=== PATIENT | male | born 1985 | race Caucasian/White ===

== ENCOUNTER → 2020-07-29 09:31 | Outpatient (REF) | payer OTHER, SELFPAY ==
--- NOTE | 2020-07-29 09:33 | CA_ITS ---
Transthoracic Echocardiogram Patient (Last, First, Middle): Leobardo Coronado, Gender: Male Date of : 1985 Age: 35 Procedure Date: 07/29/2020 Procedure Type: Transthoracic Echocardiogram Location: OP Height: 190.5 cm Weight: 95.26 kg BSA: 2.24 m2 Heart Rate: bpm BP: 124 / 76 mmHg Geriatric Social Worker: KATIE Referring MD: Thomas Isabel MD Symptoms: I10 [id number].I45.10 LBBB Study Quality: Good ECG Rhythm: Sinus Conclusions: - The left ventricular systolic function is normal. The visually estimated ejection fraction is between 60-65%. - No obvious valvular pathology seen on this study. Findings Left Ventricle Normal left ventricular cavity size. There is normal left ventricular wall thickness. The left ventricular systolic function is normal. The visually estimated ejection fraction is between 60-65%. There is no evidence of regional wall motion abnormalities. Diastolic function is normal for age. Right Ventricle Normal right ventricular cavity size and systolic function. Atria The left atrium is normal in size. The right atrium is normal in size. There is a prominent Chiari network. (normal variant). Aortic Valve There is a normal trileaflet aortic valve. There is no aortic valve stenosis. There is no aortic valve regurgitation. Mitral Valve The mitral valve appears normal. There is trace mitral valve regurgitation. There is no mitral valve stenosis. Pulmonic Valve The pulmonic valve was not well visualized. There is trace pulmonic valve regurgitation. Tricuspid Valve Normal tricuspid valve structure. There is trace tricuspid valve regurgitation. The pulmonary artery systolic pressure is normal. Great Vessels The asc aorta is normal in size. Venous The inferior vena cava is normal in size and collapses greater than 50% with inspiration. Pericardium/Pleural There is no evidence of pericardial effusion. Prior Study Comparison No significant change compared to prior study dated: 03/11/2009. Recommendations, Care & Conclusions No obvious valvular pathology seen on this study. Measurements 2D Linear Measurements RVIDd: 3.04 RVIDd Index: 1.36 IVSd: 0.88 0.6-0.9/0.6-1.0 cm LVIDd: 4.90 3.9-5.3/4.2-5.9 cm LVIDd Index: 2.19 2.4-3.2/2.2-3.1 cm/m2 LVIDs: 3.21 2.0-3.6 cm LVPWd: 0.99 0.7-1.1 cm Ao Root: 3.00 2.1-3.5 cm LA Diam: 3.20 2.7-3.8/3.0-4.0 cm LAIDs Index: 1.43 1.5-2.3 cm/m2 LV Mass: 201.06 67-162/88-224 g LV Mass Index: 89.76 43-95/49-115 g/m2 LVOT Diam: 2.40 3.0+(-)1.3 cm 2D Systolic Function EF 4C: 70.80 >55% EF 2C: 66.40 >55% EF BiP: 69.00 >55% Mitral Valve MV Pk E: 0.61 MV PK A: 0.67 MV Decel Time: 137.00 E/A: 0.90 E'Lateral: 12.60 E'Medial: 8.61 E/E' Med: 7.00 E/E' Lat: 4.80 Aortic Valve AoV Pk Neal: 1.29 AoV Mn Neal: 1.01 AoV VTI: 0.25 AoV Pk Grad: 7.00 Aov Mn Grad: 4.00 SULEIMAN Cont.VTI: 3.36 LVOT LVOT Pk Neal: 1.07 LVOT Mn Neal: 0.70 LVOT VTI: 0.18 LVOT Pk Grad: 5.00 LVOT Mn Grad: 2.00 LVOT Diam: 2.40 LVOT Area: 4.52 Diastolic Function MV Pk E: 0.61 MV Pk A: 0.67 E/A: 0.90 E'Medial: 8.61 E/E' Med: 7.00 E' Laterial: 12.60 E/E' Lat: 4.80 Tricuspid Valve RA Press: 3.00 Great Vessels Aorta Ao Root-2D: 3.00 2.0-3.7 cm Ao Asc: 2.60 2.1-3.4 cm Ao Arch: 2.70 Updated in Other Vendor System with Status of Final Dino Resendiz MD electronically signed on 07/30/2020 9:42:20 AM with status of Final
== END ==
LOC: HO.CARD 09:31
PROVIDERS: PCP Internal Medicine; Visit Provider Internal Medicine
DX: I10 Essential (primary) hypertension (principal); I45.10 Unspecified right bundle-branch block
CPT/HCPCS: 93306

== ENCOUNTER 2021-02-16 16:31 | Outpatient (REF) | payer OTHER, SELFPAY ==
[2021-02-16 18:04] LABS: Glucose Urine UA NEG (NEG); Leukocyte Esterase Urine NEG (NEG); Nitrite Urine NEG (NEG); Urine Blood NEG (NEG); Urine Ketones NEG (NEG); Urine Protein NEG (NEG-TRACE)
[2021-02-16 18:07] LABS: Appearance Urine CLEAR; Color Urine YELLOW
[2021-02-16 18:09] LABS: Anion Gap 13 (12-20); Blood Urea Nitrogen 13 mg/dL (9-16); Calcium 9.3 mg/dL (8.4-10.2); Carbon Dioxide 28 mmol/L (22-29); Chloride 100 mmol/L (96-108); Cholesterol 284 mg/dL; Estimated Glomerular Filt Rate > 60; Glucose Random 72 mg/dL (60-115); Potassium 4.1 mmol/L (3.3-5.1); Sodium 137 mmol/L (135-145)
== END 2021-02-16 16:32 | disposition home or self-care (01) ==
LOC: HO.LAB 16:31
PROVIDERS: PCP Internal Medicine; Visit Provider Internal Medicine
DX: I10 Essential (primary) hypertension (principal); R30.0 Dysuria
CPT/HCPCS: 36415; 80048; 81003; 82465

== ENCOUNTER 2021-12-11 16:24 | Outpatient (REF) | payer OTHER, SELFPAY ==
[2021-12-11 16:36] LABS: MANUAL DIFF FLAG NO
[2021-12-11 16:55] LABS: Eosinophils Absolute Auto 0.1 X10*3/uL (0.0-0.4); Hematocrit 42.6 % (42.0-52.0); Hemoglobin 14.9 g/dl (14.0-18.0); Imm Gran Abs Auto 0.01 X10*3/uL (0.00-0.03); Imm Gran Pct Auto 0.2 % (0.0-0.4); Lymphocytes Absolute Auto 1.6 X10*3/uL (1.2-4.9); Lymphocytes Percent Auto 33.5 % (20-40); Mean Corpuscular Hemoglobin 31.5 pg (27.0-33.0); Mean Corpuscular Volume 90.1 fL (80.0-98.0); Mean Platelet Volume 8.9 fL (9.4-12.4); Monocytes Absolute Auto 0.5 X10*3/uL (0.1-1.2); Monocytes Percent Auto 9.6 % (2-11); Neutrophils Absolute Auto 2.7 x10*3/uL (2.0-8.3); Neutrophils Percent Auto 55.7 % (45-73); Platelet Count 258 X10*3/uL (160-400); Red Blood Count 4.73 X10*6/uL (4.60-5.80); Red Cell Distribution Width 11.4 % (11.0-16.0); White Blood Count 4.9 X10*3/uL (4.8-10.8)
[2021-12-11 17:10] LABS: Alanine Aminotransferase 62 U/L (0-40); Albumin Level 4.6 g/dL (3.5-5.0); Alkaline Phosphatase 88 U/L (39-117); Anion Gap 12 (12-20); Aspartate Amino Transferase 35 U/L (5-37); Bilirubin Total 0.4 mg/dL (0.0-1.0); Blood Urea Nitrogen 12 mg/dL (9-16); C Reactive Protein 0.54 mg/dL (< or = 0.50); Carbon Dioxide 31 mmol/L (22-29); Chloride 101 mmol/L (96-108); Cholesterol 281 mg/dL; Estimated Glomerular Filt Rate > 60; Glucose Random 84 mg/dL (60-115); HDL Cholesterol 51 mg/dL; LDL Cholesterol Calculated 178 mg/dl; Lipase 35 U/L (8-78); Potassium 4.1 mmol/L (3.3-5.1); Sodium 140 mmol/L (135-145); Total Protein 7.2 g/dL (6.5-8.0); Triglycerides 260 mg/dL
[2021-12-11 18:12] LABS: Appearance Urine CLEAR; Color Urine YELLOW; Glucose Urine UA NEG (NEG); Leukocyte Esterase Urine NEG (NEG); Nitrite Urine NEG (NEG); Specific Gravity - Urine 1.015 (1.005-1.025); Urine Blood NEG (NEG); Urine Ketones NEG (NEG); Urine Protein NEG (NEG-TRACE)
== END 2021-12-11 16:25 | disposition home or self-care (01) ==
LOC: HO.LAB 16:24
PROVIDERS: PCP Internal Medicine; Visit Provider Internal Medicine
DX: R10.9 Unspecified abdominal pain (principal); E78.00 Pure hypercholesterolemia, unspecified
CPT/HCPCS: 36415; 80053; 80061; 81003; 83690; 85025; 86140

== ENCOUNTER 2023-06-25 15:19 | Outpatient (REF) | payer OTHER, SELFPAY ==
[2023-06-25 15:33] LABS: MANUAL DIFF FLAG NO
[2023-06-25 16:21] LABS: Basophils Percent Auto 0.2 % (0-2); Eosinophils Percent Auto 0.2 % (0-4); Hematocrit 44.8 % (42.0-52.0); Hemoglobin 15.9 g/dl (14.0-18.0); Imm Gran Abs Auto 0.02 X10*3/uL (0.00-0.03); Imm Gran Pct Auto 0.4 % (0.0-0.4); Lymphocytes Absolute Auto 1.3 X10*3/uL (1.2-4.9); Lymphocytes Percent Auto 26.2 % (20-40); Mean Corpuscular HGB Conc 35.5 g/dl (31.0-36.0); Mean Corpuscular Hemoglobin 32.1 pg (27.0-33.0); Mean Corpuscular Volume 90.5 fL (80.0-98.0); Mean Platelet Volume 8.9 fL (9.4-12.4); Monocytes Absolute Auto 0.4 X10*3/uL (0.1-1.2); Monocytes Percent Auto 7.5 % (2-11); Neutrophils Absolute Auto 3.3 x10*3/uL (2.0-8.3); Neutrophils Percent Auto 65.5 % (45-73); Platelet Count 282 X10*3/uL (160-400); Red Blood Count 4.95 X10*6/uL (4.60-5.80); Red Cell Distribution Width 11.3 % (11.0-16.0); White Blood Count 5.1 X10*3/uL (4.8-10.8)
[2023-06-25 16:23] LABS: Appearance Urine Clear; Color Urine Yellow; Glucose Urine UA Negative (Negative); Leukocyte Esterase Urine Negative (Negative); Nitrite Urine Negative (Negative); PH 5.5 (5.0-9.0); Specific Gravity - Urine 1.015 (1.005-1.025); Urine Blood Negative (Negative); Urine Ketones Negative (Negative); Urine Protein Negative (Neg-Trace)
[2023-06-25 16:46] LABS: Anion Gap 12 (12-20); Blood Urea Nitrogen 13 mg/dL (9-16); C Reactive Protein 0.22 mg/dL (< or = 0.50); Calcium 9.8 mg/dL (8.4-10.2); Carbon Dioxide 27 mmol/L (22-29); Chloride 105 mmol/L (96-108); Estimated Glomerular Filt Rate > 60; Glucose Random 92 mg/dL (60-115); Sodium 140 mmol/L (135-145)
== END 2023-06-25 15:20 | disposition home or self-care (01) ==
LOC: HO.LAB 15:19
PROVIDERS: PCP Internal Medicine; Visit Provider Internal Medicine
DX: R10.9 Unspecified abdominal pain (principal); Z87.442 Personal history of urinary calculi
CPT/HCPCS: 36415; 80048; 81003; 82550; 85025; 86140; 87086

== ENCOUNTER 2023-07-25 14:25 | Outpatient (REF) | payer OTHER, SELFPAY ==
--- NOTE | ~2023-07-25 | CT_ITS ---
EXAMINATION: CT ABDOMEN AND PELVIS WITHOUT CONTRAST CLINICAL INFORMATION: Left lower quadrant pain, history of urinary calculi. COMPARISON: CT abdomen and pelvis 03/16/2019. TECHNIQUE: Multidetector volumetric imaging was performed from the superior aspect of the liver through the pubic symphysis. Sagittal and coronal reformatted images were obtained on the technologist's workstation. This CT examination was performed using dose optimization techniques as appropriate, variously including the following: *Automated exposure control *Adjustment of mA and/or kV according to patient size (this includes techniques or standardized protocols for targeted exams where dose is matched to indication/reason for exam; i.e. extremities or head) *Use of iterative reconstruction technique DLP: 637 mGy-cm FINDINGS: LUNG BASES: The visualized lung bases are unremarkable. LIVER, GALLBLADDER, AND BILIARY TREE: Low-attenuation liver with sparing along the gallbladder fossa consistent with steatosis. No discrete liver mass. No biliary ductal dilatation. The gallbladder is unremarkable with no evidence of radiopaque gallstones, gallbladder wall thickening, or obvious pericholecystic inflammatory changes. PANCREAS: Discrete mass. No ductal dilatation. SPLEEN: Normal, no mass. ADRENAL GLANDS: No adrenal mass. KIDNEYS AND URETERS: The kidneys are normal in size, shape, and attenuation. No hydronephrosis, hydroureter, or calculi seen. No perinephric stranding. BLADDER: Unremarkable. GASTROINTESTINAL TRACT: The small bowel is normal in caliber. The appendix is normal. The large bowel is normal in caliber. No focal inflammatory changes. ABDOMINAL WALL: Small fat-containing periumbilical hernia. LYMPH NODES: No adenopathy. VASCULAR: No aortic aneurysm. PELVIC VISCERA: Prostate appears normal. The seminal vesicles appear normal. OSSEOUS STRUCTURES: No suspicious osseous lesions. CT/CT abdomen pelvis wo IV con IMPRESSION: No acute findings to correlate with left lower quadrant pain. No nephrolithiasis or hydronephrosis. Hepatic steatosis. Fleischner guidelines were followed.
[2023-07-25] MEDS: Barium Sulfate Oral (Vanilla) 450 ML ORAL.SUSP 900 ML PO (16:35)
== END 2023-07-25 14:26 | disposition home or self-care (01) ==
LOC: HO.CT 14:25
PROVIDERS: PCP Internal Medicine; Visit Provider Internal Medicine
DX: R10.32 Left lower quadrant pain (principal); Z87.442 Personal history of urinary calculi
CPT/HCPCS: 74176

== ENCOUNTER 2024-04-23 18:35 | Emergency (ER) | payer OTHER, SELFPAY ==
--- NOTE | ~2024-04-23 | XR_ITS ---
EXAMINATION: XR HAND, RIGHT CLINICAL INFORMATION: Trauma COMPARISON: None available. TECHNIQUE: PA, lateral, and oblique views of the right hand. FINDINGS: There is a distal tuft fracture of the third digit. Alignment is anatomic. Joint spaces are maintained. No erosions or soft tissue calcifications. XR/XR hand RT min 3V IMPRESSION: Distal tuft fracture of the third digit.
[2024-04-23 18:39] VITALS: BP 195/113; PULSE 130; RESP 20; TEMP 36.4; O2SAT 99; BMI 28.1
--- NOTE | 2024-04-23 18:40 | ED_ITS ---
HPI - General Adult General Chief complaint: Skin/Abscess/Foreign Body Stated complaint: cut fingers on mower, bleeding controlled per pt Time Seen by Provider: 04/23/24 18:56 Source: patient and RN notes reviewed Mode of arrival: ambulatory Limitations: no limitations History of Present Illness ED Provider: Caitlin [facility] narrative: Patient is a 38-year-old right-hand dominant male presenting to the emergency department with lacerations to right 2nd and 3rd fingers. 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 He reports that his fingers initially felt numb for about 30 seconds and then to hurt. Denies numbness and tingling currently. Denies decreased range of motion of fingers. Unknown last tetanus vaccine. Denies any other injuries. States the laborer pipeline was not running at the time of injury. MD complaint: finger lacerations Onset (ago): hour(s) Location: right and upper extremity Severity: severe Quality: aching Pain Consistency: constant Associated symptoms: denies other symptoms Treatments prior to arrival: other (bandage) Related Data Previous Rx's ?Medication ?Instructions ?Recorded amoxicillin 875 mg-potassium 1 tab PO BID #20 tabs 04/23/24 clavulanate 125 mg tablet Allergies Allergy/AdvReac Type Severity Reaction Status Date / Time animal dander [PET DANDER] Allergy Unknown UNKNOWN Verified 04/23/24 18:40 Review of Systems 2 Review of Systems: as Per HPI. Yes all other systems are reviewed and are negative Constitutional: Constitutional: Reports as per HPI [facility] Social History Social History Advance Directives: No Advance Directives Information Provided: No Physical Exam ED Vital Signs: Vital Signs - 24 hr 04/23/24 18:39 04/23/24 19:39 Temperature 97.5 F 98.2 F Pulse Rate 130 H 112 H Respiratory Rate 20 18 Blood Pressure 195/113 H 144/97 H Pulse Oximetry 99 97 Oxygen Delivery Method Room Air Room Air BMI result Body Mass Index 28.1 Vital signs have been reviewed and appear to be correct. Blood pressure normal. Heart rate normal. Respiratory rate normal. Temperature normal. Oxygen saturation normal. Const General: cooperative, healthy appearing and no acute distress Orientation/consciousness: oriented to person, oriented to place, oriented to time and patient oriented x3 Limitations: no limitations HENMT Head: Yes normocephalic and Yes atraumatic Ears: external ears normal General nose exam: Normal external nose present Face and sinus: Yes face symmetric Mouth: oropharynx normal and moist mucous membranes Throat: Yes uvula midline Eyes Pupils: Equal, round and reactive pupils present Neck Neck: Yes normal visual inspection and Yes supple Resp Effort & Inspection: normal respiratory effort and able to speak in complete sentences Auscultation: clear to auscultation bilaterally Cardio Rate: regular rate Rhythm: regular rhythm Heart sounds: S1 normal heart sound present and S2 normal heart sound present GI Palpation (GI): Soft to palpation and nontender Auscultation: normoactive bowel sounds General: Yes no CVA tenderness Back/Spine/Pelvis Back: no CVA tenderness Skin General skin exam: elasticity normal and turgor normal Neuro General: oriented to person, oriented to place, oriented to time, patient oriented x3, moves all extremities, no focal motor deficits and CN's II-XI intact bilaterally Cranial nerves: Yes Equal, round and reactive pupils present Cognition (Neuro): normal cognition Extrem Other: General: Yes full ROM, Yes no pedal edema and Yes no calf tenderness Right upper extremity: Extremity exam: right hand Details: neuromotor exam normal, neurosensory exam normal, tendon exam normal, normal ROM of fingers and laceration 2nd digit radial aspect distal Details: linear and with motor nerve function intact, 3rd digit palmar aspect distal Details: linear, with motor nerve function intact and with sensation intact, 3rd digit dorsal aspect distal Details: irregular (through nail, see photos), with motor nerve function intact and with sensation intact Psych Mental Status: mental status grossly normal Affect: normal affect Thought process: Normal thought process present Course Course Course Narrative: RME, this is a rapid medical exam performed by Brian Barone please refer to primary provider for complete H&P- 38 year old male presents for evaluation of a hand injury. 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 He has small lacerations, but not an amputation. Plan for x-rays. He needs a Tetanus booster. Medications Administered Generic Name Dose Route Start Last Admin Trade Name Freq PRN Reason Stop Dose Admin Cefazolin Sodium/Dextrose 2 gm in 50 mls @ 100 mls/hr 04/23/24 20:52 04/23/24 21:18 Ancef IV 07/18/24 21:21 100 mls/hr ONCE ONE Administration Discontinued Medications Generic Name Dose Route Start Last Admin Trade Name Gabrielq PRN Reason Stop Dose Admin Diphtheria/Tetanus/Acell Pertussis 0.5 ml 04/23/24 18:40 04/23/24 19:23 Diphth,Pertus(Acell),Tet Adult 0.5 Ml Syringe IM 04/23/24 18:41 0.5 ml .ONCE ONE Administration Lidocaine HCl 10 ml 04/23/24 19:05 04/23/24 19:22 Lidocaine Hcl 1 % Mpf 5 Ml Vial INFILTRATI 04/23/24 19:06 10 ml ONCE ONE Administration Procedures Laceration Laceration 1: Site: hand (2nd finger radial side) Side (If applicable): right Size (cm): 1 Description: linear Depth: simple, single layer Local Anesthetic: lidocaine 1% Amount of anesthesia used (mL): 2 Pre-repair: wound explored, irrigated extensively and deep structures intact Skin layer closed with: other (prolene) Size (cm): 4-0 Number of sutures: 3 Technique: simple, interrupted Laceration 2: Site: hand (3rdfinger, palmar side) Side (If applicable): right Size (cm): 1 Description: linear Depth: simple, single layer Local Anesthetic: lidocaine 1% Amount of anesthesia used (mL): 2 Pre-repair: wound explored, irrigated extensively and deep structures intact Skin layer closed with: other (prolene) Size (cm): 4-0 Number of sutures: 5 Technique: simple, interrupted Laceration 3: Site: hand (3rd finger dorsal side) Side (If applicable): right Size (cm): 1.5 Description: irregular (through nail) Local Anesthetic: lidocaine 1% Amount of anesthesia used (mL): 5 Pre-repair: wound explored, irrigated extensively and deep structures intact Skin layer closed with: nylon (x2 sutures through nail) and other (prolene x 2 sutures) Size (cm): 4-0 Number of sutures: 4 Technique: simple, interrupted Medical Decision Making Medical Decision Making MDM Narrative: Patient is a 38-year-old right-hand dominant male presenting to the emergency department with lacerations to right 2nd and 3rd fingers. On exam patient is awake, A+Ox3, VS WNL, afebrile, normal neurological exam without focal deficits, physical exam findings as above. Given reported symptoms and physical exam findings, initial differential includes laceration, nail injury, open fracture. X-ray right hand notable for distal tuft fracture of third finger. My interpretation is in agreement with the radiologist's interpretation. Lacerations repaired as per procedure notes. Case discussed with Dr. Miller from othopedics who recommends one IV dose of antibiotics here and patient can be discharged home on PO antibiotics and follow up with Dr. Smith/ortho outpatient. 2g IV ancef ordered. Plan discussed with patient who verbalized understanding and agreement. Wound care instructions including daily assessment reviewed with patient at bedside. Patient also advised to return to this ED or another healthcare facility (if away on vacation) for re-evaluation of his wounds in the next 2-3 days to ensure no signs of infection. Return precautions discussed. Patient verbalized understanding of and agreement with plan. Differential Diagnosis Differential Diagnoses: The differential diagnosis associated with the presentation includes As per MDM Consult Healthcare Provider Management of the patient was discussed with: Functional Mental Disability Teacher (Dr. Miller, meghan) Independent Interpretation I performed an independent interpretation of an: Plain X-Ray Interpretation: Distal tuft fracture of right 3rd phalanx Radiology Impression Discussion of test interpretation with radiology: I have reviewed the radiologist's reading. Radiologist Impression: XR/XR hand RT min 3V IMPRESSION: Distal tuft fracture of the third digit. External Record Review External record reviewed: Inpatient record, Office record and Outpatient record Prescription Management I considered prescription management with: Antibiotic Discharge Plan Discharge Clinical Impression: Fracture, finger, distal phalanx, open Qualifiers: Encounter type: initial encounter Finger: middle finger Laterality: right Laceration of finger of right hand Qualifiers: Encounter type: initial encounter Finger: index finger Damage to nail status: w ithout damage Foreign body presence: without foreign body Qualified Code(s): S 61.210A - Laceration without foreign body of right index finger without damage to nail, initial encounter Finger laceration Qualifiers: Encounter type: initial encounter Finger: middle finger Damage to nail status: with damage Foreign body presence: without foreign body Laterality: right Q ualified Code(s): S61.312A - Laceration without foreign body of right middle finger with damage to nail, initial encounter Patient Disposition: Home, Self-Care Instructions: Care For Your Stitches (DC), Laceration (DC), Finger Fracture (ED), Finger Laceration (ED), Stitches Removal (ED) Additional Instructions: You have been evaluated in the emergency department today for a laceration to fingers of your right hand. Your lacerations were repaired in the emergency department with sutures. Please keep the areas surrounding the lacerations clean and dry and keep dressings in place for the next 24 hours. After that please change the dressing and assess the wound daily. Return to the emergency department in two days for a wound check in you have not seen the hand specialist by that time. Keep the wounds out of standing water (no swimming, hot tubs, washing dishes), especially outdoor water. YOU WILL NEED TO FOLLOW UP WITH THE HAND SPECIALIST, PLEASE CALL THEIR OFFICE TO SCHEDULE AN APPOINTMENT, THEY WILL NOT CALL YOU. You are being treated with a course of antibiotics to prevent infection, please complete the full course as prescribed. You should have the sutures removed in 7-10 days. If you develop fever, redness, swelling at the site of your laceration, or thick yellow drainage please come back to the ER for a wound check. Prescriptions: New amoxicillin-pot clavulanate 875-125 mg tablet 1 tab PO BID Qty: 20 0RF Referrals: [facility] [place] [facility] [Provider Group] Tereza Smith MD [Physician] - Print Language: Bulgarian
[2024-04-23] MEDS: Lidocaine HCl 1 % MPF 5 ML VIAL 10 ML INFILTRATI (19:22)
[2024-04-23] MEDS: Diphth,Pertus(ACell),Tet Adult 0.5 ML SYRINGE IM (19:23)
[2024-04-23 19:39] VITALS: BP 144/97; PULSE 112; RESP 18; TEMP 36.8; O2SAT 97
[2024-04-23] MEDS: ceFAZolin Sodium/Dextrose,Iso 2 GM/50 ML PIGGYBACK IV (21:18)
[2024-04-23 21:40] VITALS: BP 144/97; PULSE 112; RESP 18; TEMP 36.8; O2SAT 97
== END 2024-04-23 21:41 | disposition home or self-care (01) ==
PROVIDERS: Emergency Provider Emergency Medicine Emergency Medical Services; PCP Internal Medicine
DX: S61.210A Laceration without foreign body of right index finger without damage to nail, initial encounter (principal); S61.312A Laceration without foreign body of right middle finger with damage to nail, initial encounter; W28.XXXA Contact with powered lawn mower, initial encounter; Y93.89 Activity, other specified; Y92.9 Unspecified place or not applicable; Y99.9 Unspecified external cause status
CPT/HCPCS: 12002; 73130; 90471; 90715; 96365; 99283; 99284; J0690

== ENCOUNTER 2024-05-05 08:21 | Outpatient (AMB) | payer OTHER, SELFPAY ==
--- NOTE | 2024-05-05 08:29 | A.OFFVIS_ITS ---
Vital Signs 05/05/24 08:34 Height 6 ft 3 in Weight 225 lb BMI 28.1 Handedness Right Intake Visit Reasons: FC-Distal tuft fx of RT 3rd phalanx, DOI 04/23/24 Intake Note: Leobardo is a 38 year old right hand dominant male who presents today for a evaluation of his right pointer and middle finger laceration, DOI 04/23/24. 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 He states that his fingers feel very sore and sensitive. Allergies animal dander [PET DANDER] Allergy (Unknown, Verified 05/05/24 08:33) UNKNOWN HPI HPI FC-Distal tuft fx of RT 3rd phalanx, DOI 04/23/24: Details: 38-year-old right hand dominant male who presents in the office today, as a new patient, for an evaluation of the right hand. The patient presented to the ED on 04/23/24 with lacerations on the right second and third digits. 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 The patient received three sutures in the second digit on the radial side. He received five sutures on the third digit on the palmar side and four on the dorsal side. He was given an IV dose of antibiotics and prescribed amoxicillin-pot clavulanate 875-125 mg PO BID for 10 days. ? ? While in the office today, the patient confirmed he was attempting to unclog a order picker/assembler at home when his hand slipped, and he cut his fingers on the blade. He reports the index and middle digits are very sore and sensitive. ? 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 laceration to the palmar aspect of the index finger. No erythema or drainaing, no signs of infection. Able to perform full finger f lexion, extension, abduction, adduction, finger cross, okay sign, and thumbs up without deficit. Able to make a closed fist. Capillary refill is brisk. Sensation to middle finger pad is described as tingly but no numbness. Index finger with full sensation. Assessment & Plan Assessment & Plan (1) Open fracture of phalanx of right middle finger: Code(s): S62.602B - Fracture of unspecified phalanx of right middle finger, initial encounter for open fracture Category: Medical Qualifiers: Encounter type: initial encounter Fracture alignment: nondisplaced Phalanx: unspecified phalanx Qualified Code(s): S62.602B - Fracture of unspecified phalanx of right middle finger, initial encounter for open fracture (2) Laceration of right middle finger: Code(s): S61.212A - Laceration without foreign body of right middle finger without damage to nail, initial encounter Category: Medical Qualifiers: Damage to nail status: with damage Encounter type: initial encounter Foreign body presence: unspecified Qualified Code(s): S61.312A - Laceration without foreign body of right middle finger with damage to nail, initial encounter (3) Laceration of right index finger: Code(s): S61.210A - Laceration without foreign body of right index finger without damage to nail, initial encounter Category: Medical Qualifiers: Damage to nail status: without damage Encounter type: initial encounter Foreign body presence: unspecified Qualified Code(s): S61.210A - Laceration without foreign body of right index finger without damage to nail, initial encounter (4) Open fracture of tuft of distal phalanx of finger: Code(s): S62.639B - Displaced fracture of distal phalanx of unspecified finger, initial encounter for open fracture Plan Mr. Coronado is a 38-year-old right hand dominant male who presents in the office today, as a new patient, for an evaluation of the right hand. The patient presented to the ED on 04/23/24 with lacerations on the right second and third digits. 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 The patient received three sutures in the second digit on the radial side. He received five sutures on the third digit on the palmar side and four on the dorsal side. He was given an IV dose of antibiotics and prescribed amoxicillin-pot clavulanate 875-125 mg PO BID for 10 days. ? ? While in the office today, the patient confirmed he was attempting to unclog a order picker/assembler at home when his hand slipped, and he cut his fingers on the blade. He reports the index and middle digits are very sore and sensitive.? ? The sutures were removed and a dry dressing was applied to the middle digit. The patient will continue to take his antibiotic until the course is complete. He was educated on signs of infection, which are as follows but not limited to erythema, edema, drainage, or warmth. If he is to experience any of these symptoms, he must contact the office immediately or present to the ED.? ? Follow-up will be in one week for a wound check, or sooner if needed. ? ? X-rays of the right hand which were obtained while in the office today and were reviewed by me, Radha Gutierrez PA-C, redemonstrated a distal tuft fracture of the middle finger. ? ? X-rays of the right hand, obtained on 04/23/24, reveal: Distal tuft fracture of the third digit.? Orders: Orders XR hand RT min 3V Today M79.643 - Pain in unspecified hand Patient Instructions: Scribed by Kat Manning medical associate, for Radha Gutierrez PA-C on 05/05/2024 at 8:28 am, EST.? Coding Level of Care Code New Pt Level 3 (89952) Diagnoses Open nondisplaced fracture of phalanx of right middle finger, unspecified phalanx, initial encounter S62.602B Encounter type: initial encounter Fracture alignment: nondisplaced Phalanx: unspecified phalanx Laceration of right middle finger with damage to nail, foreign body presence unspecified, initial encounter S61.312A Damage to nail status: with damage Encounter type: initial encounter Foreign body presence: unspecified Laceration of right index finger without damage to nail, foreign body presence unspecified, initial encounter S61.210A Damage to nail status: without damage Encounter type: initial encounter Foreign body presence: unspecified Open fracture of tuft of distal phalanx of finger S62.337N
[2024-05-05 08:34] VITALS: BMI 28.1
== END 2024-05-05 08:59 | disposition home or self-care (01) ==
PROVIDERS: PCP Internal Medicine; Visit Provider Physician Assistant
DX: S61.312A Laceration without foreign body of right middle finger with damage to nail, initial encounter (principal); S61.210A Laceration without foreign body of right index finger without damage to nail, initial encounter
CPT/HCPCS: 99203

== ENCOUNTER 2024-05-05 10:14 | Outpatient (REF) | payer SELFPAY ==
--- NOTE | ~2024-05-05 | XR_ITS ---
EXAMINATION: XR HAND, RIGHT CLINICAL INFORMATION: Pain in the hand COMPARISON: Prior x-ray 04/23/2024 TECHNIQUE: PA, lateral, and oblique views of the right hand. FINDINGS: Redemonstrated comminuted mildly displaced fracture of the distal phalanx of the middle finger. The fracture may extend to the volar articular surface of the base of the phalanges. The fracture extends the length of the phalanx. Question slight increase in anterior displacement of the proximal fracture fragments. Remaining bones joints and soft tissues unremarkable. XR/XR hand RT min 3V IMPRESSION: Comminuted mildly displaced fracture of the distal phalanx of the middle finger. Question slight increase in anterior displacement of the proximal fracture fragments versus artifactual related to slight differences in projection.
== END 2024-05-05 10:15 | disposition home or self-care (01) ==
LOC: HO.HOSX 10:14
PROVIDERS: Visit Provider Physician Assistant
DX: M79.641 Pain in right hand (principal)
CPT/HCPCS: 73130

== ENCOUNTER 2024-05-12 08:20 | Outpatient (AMB) | payer OTHER, SELFPAY ==
--- NOTE | 2024-05-12 08:24 | MHC.OFFVIS ---
Vital Signs 05/12/24 08:25 Height 6 ft 3 in Weight 225 lb BMI 28.1 Intake Visit Reasons: OV - Right 3rd Finger Lac 04/23/24 - Wound Check Intake Note: Leobardo is a 38 year old right hand dominant male who presents today for a wound check of his right index and middle finger laceration, DOI 04/23/24. Patient reports reports he is doing okay. He mentions that he is having a little tingling sensation on the tip of his middle finger. . Allergies animal dander [PET DANDER] Allergy (Unknown, Verified 05/12/24 08:27) UNKNOWN HPI HPI OV - Right 3rd Finger Lac 04/23/24 - Wound Check : Details: 38-year-old right hand dominant male who presents in the office today for a wound check and follow-up of a right index and middle finger lacerations, as well as a right middle finger fractures. I last saw the patient in the office on 05/05/24 when he was to continue all his antibiotic medication. ? ? While in the office today, the patient reports he is doing okay. He reports a mild tingling sensation on the tip of his middle finger. ? ? Patient has an allergy history, as follows:? -Animal dander; unknown? ? Patient is not currently taking any medication.? ? Patient has no significant medical history.? ? Patient has no known surgical history.? ? Patient has a social history, as follows:? 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 Review of Systems Const All systems reviewed & are unremarkable except as noted in HPI and below Physical Exam Vital Signs: BMI result Body Mass Index 28.1 Const General: cooperative, healthy appearing and no acute distress Orientation/consciousness: patient oriented x3 HEENT Head: Yes normal to inspection, Yes normocephalic and Yes atraumatic Eyes General: appearance normal, both eyes and all related structures Neck Neck: Yes normal visual inspection and Yes no lymphadenopathy Resp Effort & Inspection: normal respiratory effort and able to speak in complete sentences Cardio Rate: regular rate Peripheral pulses: Peripheral pulses 2+ throughout GI Inspection: Yes normal to inspection Palpation (GI): Soft to palpation Skin General skin exam: no rashes or lesions noted Lesions: no lesions Rashes: no rashes Neuro General: patient oriented x3 Extrem Other: Right hand: Laceration to the Middle finger through the nailbed and mason aspect of the tip. laceration to the palmar aspect of the index finger. No erythema or drainaing, no signs of infection. Able to perform full finger flexion, extension, abduction, adduction, finger cross, okay sign, and thumbs up without deficit. Able to make a closed fist. Capillary refill is brisk. Sensation to middle finger pad is described as tingly but no numbness. Index finger with full sensation. Psych Mental Status: mental status grossly normal Assessment & Plan Assessment & Plan (1) Open fracture of phalanx of right middle finger: Code(s): S62.602B - Fracture of unspecified phalanx of right middle finger, initial encounter for open fracture Category: Medical Qualifiers: Encounter type: initial encounter Fracture alignment: nondisplaced Phalanx: unspecified phalanx Qualified Code(s): S62.602B - Fracture of unspecified phalanx of right middle finger, initial encounter for open fracture (2) Laceration of right middle finger: Code(s): S61.212A - Laceration without foreign body of right middle finger without damage to nail, initial encounter Category: Medical Qualifiers: Damage to nail status: with damage Encounter type: initial encounter Foreign body presence: unspecified Qualified Code(s): S61.312A - Laceration without foreign body of right middle finger with damage to nail, initial encounter (3) Laceration of right index finger: Code(s): S61.210A - Laceration without foreign body of right index finger without damage to nail, initial encounter Category: Medical Qualifiers: Damage to nail status: without damage Encounter type: initial encounter Foreign body presence: unspecified Qualified Code(s): S61.210A - Laceration without foreign body of right index finger without damage to nail, initial encounter (4) Open fracture of tuft of distal phalanx of finger: Code(s): S62.639B - Displaced fracture of distal phalanx of unspecified finger, initial encounter for open fracture Plan Mr. Coronado is a 38-year-old right hand dominant male who presents in the office today for a wound check and follow-up of a right index and middle finger lacerations, as well as a right middle finger fractures. I last saw the patient in the office on 05/05/24 when he was to continue all his antibiotic medication. ? ? While in the office today, the patient reports he is doing okay. He reports a mild tingling sensation on the tip of his middle finger.? ? I discussed in detail the procedure and what to expect pre and post operatively. We discussed the risks, benefits, alternatives to the surgery and the rehabilitation course. The risks include infection, bleeding, nerve injury, ongoing pain, swelling, and stiffness, perioperative risk of injury to bones and soft tissues, and blood clots.?? ? I have answered all questions and with their understanding they have consented to move forward with a right middle finger removal of nail to be performed by Dr. Tereza Smith.? ? Follow-up will be at the post operative appointment, or sooner if needed.? Patient Instructions: Scribed by Kat Manning medical reception specialist, for Radha Matt JARRETT on 05/12/2024 at 8:28 am, EST.? Coding Level of Care Code Est Pt Level 4 (87831) Diagnoses Open nondisplaced fracture of phalanx of right middle finger, unspecified phalanx, initial encounter S62.602B Encounter type: initial encounter Fracture alignment: nondisplaced Phalanx: unspecified phalanx Laceration of right middle finger with damage to nail, foreign body presence unspecified, initial encounter S61.312A Damage to nail status: with damage Encounter type: initial encounter Foreign body presence: unspecified Laceration of right index finger without damage to nail, foreign body presence unspecified, initial encounter S61.210A Damage to nail status: without damage Encounter type: initial encounter Foreign body presence: unspecified Open fracture of tuft of distal phalanx of finger S62.639B
[2024-05-12 08:25] VITALS: BMI 28.1
== END 2024-05-12 08:53 | disposition home or self-care (01) ==
PROVIDERS: PCP Internal Medicine; Visit Provider Physician Assistant
DX: S62.602B Fracture of unspecified phalanx of right middle finger, initial encounter for open fracture (principal); S62.639B Displaced fracture of distal phalanx of unspecified finger, initial encounter for open fracture
CPT/HCPCS: 99214

== ENCOUNTER → 2024-05-12 08:20 | Outpatient (BNVA) | payer OTHER, SELFPAY | PROVIDERS: PCP Internal Medicine; Visit Provider Physician Assistant ==

== ENCOUNTER 2024-05-27 13:46 | Outpatient (REF) | payer OTHER, SELFPAY | END 2024-05-27 13:47 | disposition home or self-care (01) | LOC: HO.HOSX 13:46 | PROVIDERS: Visit Provider Orthopaedic Surgery | DX: Z13.89 Encounter for screening for other disorder (principal) ==